=== PATIENT | male | born 1995 | race Native Hawaiian/Other Pacific Islander ===

== ENCOUNTER → 2016-12-19 | Day surgery (SDC) | payer OTHER ==
[2016-12-16 12:39] VITALS: Ht 177.8 cm; Wt 63.0 kg
[~2016-12-19] VITALS: Ht 177.8 cm; Wt 63.0 kg
[~2016-12-19] MED LIST: ATROPINE SULFATE 0.1 MG/ML 5ML SYR IV PRN; BUPIVACAINE/EPINEPHRINE 0.5% MPF 1:200,000 30 ML VIAL ONE; CEFAZOLIN 1000MG/55 ML D5W IV SCH; DEXAMETHASONE SOD INJ 4 MG/ML VIAL ONE; EpHEDrine SULFATE INJ 50 MG/ML AMP IV PRN; EpINEphrine INJ 1MG/ML AMP 1 MG/ML AMP ONE; FENTANYL CITRATE INJ 50 MCG/1 ML 2 ML VIAL ONE; LACTATED RINGER'S 1000ML 1,000 ML IV SCH; LIDOCAINE HCL 1% 20 ML VIAL ONE; LIDOCAINE HCL 2% 2 ML VIAL (20MG/ML) ONE; MIDAZOLAM HCL 1 MG/ML 2ML VIAL ONE; MoRPHine SULFATE 2 MG/ML CARP IV PRN; MoRPHine SULFATE 4 MG/ML 1 ML CARP\\VIAL IV PRN; ONDANSETRON INJ 2 MG/ML 2 ML VIAL IV PRN; ONDANSETRON INJ 2 MG/ML 2 ML VIAL ONE; OXYCODONE/ACETAMINOPHEN 5-325 TAB PO PRN; PROPOFOL IV EMULSION 10 MG/ML 20 ML VIAL IV ONE; ROPIVACAINE 0.5% 5 MG/ML 30 ML VIAL ONE
--- NOTE | 2016-12-19 07:05 | History & Physical Bridge - [place] ---
H&P Re-Evaluation Bridge Note: I have examined the patient, reviewed the History & Physical and in the interval since the performance of the History & Physical I have noted the following changes of clinical significance: No changes noted
--- NOTE | 2016-12-19 13:04 | [facility] Post Operative Brief Note ---
Immediate Operative Summary Operative Date Dec 19, 2016. Pre-Operative Diagnosis Right ACL tear Post-Operative Diagnosis Same + Chondromalacia Patella Procedure(s) Performed 1) Right Knee Arthroscopy Anterior Cruciate Ligament Reconstruction With Hamstring Autograft. 2) Chondroplasty of patella. 3) Exam Under Anesthesia Surgeon Dr Vega Event Technician Surgeon(s) Everett Matt PA-C (No fellow avail) Estimated Blood Loss 20 ml Findings As above. Fluids (cc crystalloids) 1200 Specimens None Drains n/a Anesthesia LMA & Adductor block Complication(s) None Disposition Recovery Room / PACU (Stable)
--- NOTE | 2016-12-19 13:22 | [facility] Operative Report ---
Operative Report Operative Date Dec 19, 2016. Pre-Operative Diagnosis Right ACL tear Post-Operative Diagnosis Same + Chondromalacia Patella Procedure(s) Performed 1) Right Knee Arthroscopy Anterior Cruciate Ligament Reconstruction With Hamstring Autograft. 2) Chondroplasty of patella. 3) Exam Under Anesthesia Surgeon Dr Vega Fancy Stitcher Surgeon(s) Everett Matt PA-C (No fellow avail) Estimated Blood Loss 20 ml Findings same Fluids (cc crystalloids) 1200 Specimens None Drains none Anesthesia general, block Disposition Recovery Room / PACU Implants see Dr. Vega's note Indications sustained injury to right knee, MRI obtained, surgery recommended, consents signed. Description of Procedure taken to the OR, prepped and draped, I was present the entire case, please see Dr. Vega's op note for further detail. I attest to the content of the Intraoperative Record and any orders documented therein. Any exceptions are noted below.
--- NOTE | 2016-12-19 13:24 | Discharge Instructions-SurgCtr ---
Discharge Instructions Visit Reason for Visit: Right Knee Acl Tear, Possible Meniscus Tear Discharge Discharge Diagnosis / Problem: Status post R ACL reconstruction with Hamstring autograft. Discharge Goals Goal(s): Decrease discomfort, Improve function, Increase independence Activity Recommendations Activity Limitations: per Instructions/Follow-up section Exercise/Sports Limitations: until after follow-up appointment May Resume Sexual Activity: when tolerated Shower/Bathe: may shower/bathe in 3 days Driving or Machine Use: No Weightbearing Status: Right non-weightbearing (for 24 hours, then as tolerated with brace locked in extension.) Anesthesia . Post Anesthesia Instructions: If you have had General Anesthesia or IV Sedation: * Do not drive today. * Resume driving when surgeon permits. * Do not make important decisions or sign legal documents today. * Call surgeon for: 1. Temperature elevations greater than 101 degrees F. 2. Uncontrollable pain. 3. Excessive bleeding. 4. Persistent nausea and vomiting. 5. Medication intolerance (nausea, vomiting or rash). * For nausea and vomiting use only clear liquids such as: tea, soda, bouillon until nausea subsides, then gradually increase diet as tolerated. * If you have any concerns or questions, call your surgeon's office. If physician is unavailable and it is an emergency, call 911 or go to the nearest emergency room. . Instructions / Follow-Up Instructions / Follow-Up PT in 2-[address] Vega in 10-15 days. Diet Recommendations Home Diet: resume previous diet Procedures Procedures Performed: 1) Right Knee Arthroscopy Anterior Cruciate Ligament Reconstruction With Hamstring Autograft. 2) Chondroplasty of patella. 3) Exam Under Anesthesia Pending Studies Studies pending at discharge: no Medical Emergencies . Who to Call and When: Medical Emergencies: If at any time you feel your situation is an emergency, please call 911 immediately. . Non-Emergent Contact Non-Emergency issues call your: Surgeon Call Non-Emergent contact if: temperature is above 101.5, your pain is not controlled, wound has increased drainage, wound has increased redness . . "Provider Documentation" section prepared by Chris Vega.
[2016-12-19] MEDS: FENTANYL CITRATE INJ 50 MCG/1 ML 2 ML VIAL IV PRN ×2 (13:43→13:53)
--- NOTE | 2016-12-19 14:37 | Anesthesia Progress Nt - [facility] ---
Anesthesia Post Op Note Date & Time Dec 19, 2016 at 14:36 Vital Signs Pain Intensity: 2 Vital Signs Past 12 Hours Date Time Temp Pulse Resp B/P Pulse Ox O2 Delivery O2 Flow Rate FiO2 12/19/16 14:25 59 14 99 12/19/16 14:25 60 14 12/19/16 14:24 59 13 12/19/16 14:24 60 13 100 12/19/16 14:23 37.0 58 14 127/86 99 Room Air 12/19/16 14:23 127/86 12/19/16 14:19 78 11 12/19/16 14:19 80 11 100 12/19/16 14:18 123/88 12/19/16 14:15 69 12 12/19/16 14:15 71 12 100 12/19/16 14:14 66 10 127/78 100 12/19/16 14:14 65 10 12/19/16 14:09 59 12 12/19/16 14:09 58 12 100 12/19/16 14:08 118/77 12/19/16 14:04 59 10 12/19/16 14:04 60 10 100 12/19/16 14:03 59 10 12/19/16 14:03 58 10 126/78 100 12/19/16 14:02 86 11 12/19/16 14:02 11 12/19/16 13:58 118/73 12/19/16 13:57 62 10 100 12/19/16 13:57 63 10 12/19/16 13:53 123/80 12/19/16 13:52 68 17 100 12/19/16 13:52 69 17 12/19/16 13:48 122/80 12/19/16 13:47 63 12 12/19/16 13:47 65 12 100 12/19/16 13:43 133/83 12/19/16 13:42 65 12/19/16 13:42 65 100 12/19/16 13:38 131/82 12/19/16 13:37 85 12 100 12/19/16 13:37 82 12 12/19/16 13:33 119/86 12/19/16 13:32 126/85 12/19/16 13:31 36.8 78 16 126/85 100 Diffusion Mask 6 12/19/16 10:32 48 19 100 12/19/16 10:32 49 12/19/16 10:31 47 24 100 12/19/16 10:31 46 12/19/16 10:28 104/68 12/19/16 10:26 54 22 100 12/19/16 10:26 54 12/19/16 10:23 97/67 12/19/16 10:21 56 12/19/16 10:21 54 19 100 12/19/16 10:18 108/75 12/19/16 10:16 48 24 100 12/19/16 10:16 47 12/19/16 10:13 98/75 12/19/16 10:11 47 12/19/16 10:11 46 17 100 12/19/16 10:08 101/67 12/19/16 10:06 48 12/19/16 10:06 47 20 100 12/19/16 10:03 102/68 12/19/16 10:01 48 18 100 12/19/16 10:01 49 12/19/16 09:58 86/63 12/19/16 09:56 49 12/19/16 09:56 53 41 100 12/19/16 09:55 84 17 100 12/19/16 09:55 50 12/19/16 09:53 101/67 12/19/16 09:50 55 12/19/16 09:50 55 28 100 12/19/16 09:48 106/62 12/19/16 09:45 54 12/19/16 09:45 54 19 100 12/19/16 09:43 97/66 12/19/16 09:40 55 10 100 12/19/16 09:40 56 12/19/16 09:38 110/65 12/19/16 09:35 55 12/19/16 09:35 55 9 100 12/19/16 09:33 103/64 12/19/16 09:30 57 12/19/16 09:30 57 10 100 12/19/16 09:28 108/65 12/19/16 09:25 57 12/19/16 09:25 54 8 100 12/19/16 09:24 55 12/19/16 09:24 57 10 100 12/19/16 09:23 106/64 12/19/16 09:19 58 46 99 12/19/16 09:19 58 12/19/16 09:18 98/61 12/19/16 09:14 59 0 110/59 99 12/19/16 09:14 58 12/19/16 09:13 110/59 12/19/16 09:09 58 0 100 12/19/16 09:09 57 12/19/16 09:08 105/63 12/19/16 09:06 67 12/19/16 09:06 66 0 95 12/19/16 09:03 104/60 12/19/16 09:01 82 12 121/72 100 12/19/16 09:01 76 12/19/16 08:56 54 12/19/16 08:56 55 0 99 12/19/16 08:51 52 12/19/16 08:51 52 0 99 12/19/16 08:46 52 12/19/16 08:46 52 0 99 12/19/16 08:41 51 0 98 12/19/16 08:41 51 12/19/16 08:36 54 0 99 12/19/16 08:36 54 12/19/16 08:31 56 12/19/16 08:31 58 0 98 12/19/16 08:26 66 12/19/16 08:26 59 0 98 12/19/16 08:21 67 12/19/16 08:21 67 0 99 12/19/16 08:16 54 12/19/16 08:16 55 0 99 12/19/16 08:11 57 12/19/16 08:11 57 0 98 12/19/16 08:06 57 0 98 12/19/16 08:06 60 12/19/16 08:01 63 0 98 12/19/16 08:01 63 12/19/16 07:56 84 0 99 12/19/16 07:56 79 12/19/16 07:51 55 0 98 12/19/16 07:51 55 12/19/16 07:46 70 0 100 12/19/16 07:46 67 12/19/16 07:41 59 0 100 12/19/16 07:41 61 12/19/16 07:36 59 12/19/16 07:36 60 0 100 12/19/16 07:31 62 12/19/16 07:31 63 0 100 12/19/16 07:06 36.9 71 16 117/73 100 Room Air Notes Mental Status: alert / awake / arousable, participated in evaluation Pt Amnestic to Procedure: Yes Nausea / Vomiting: adequately controlled Pain: adequately controlled Airway Patency, RR, SpO2: stable & adequate BP & HR: stable & adequate Hydration State: stable & adequate Anesthetic Complications: no major complications apparent
[2016-12-19 15:02] VITALS: TEMP 37.3
[2016-12-19 15:45] VITALS: BP 121/73; PULSE 72; O2SAT 100
--- NOTE | 2016-12-20 08:48 | [facility] Operative Report ---
Operative Report Operative Date Dec 20, 2016. Pre-Operative Diagnosis Right ACL tear Post-Operative Diagnosis Same + Chondromalacia Patella Procedure(s) Performed 1) Right Knee Arthroscopy Anterior Cruciate Ligament Reconstruction With Hamstring Autograft. 2) Chondroplasty of patella. 3) Exam Under Anesthesia Surgeon Dr Vega Senior Electronics Design Engineer Surgeon(s) Everett Matt PA-C (No fellow avail) Estimated Blood Loss 20 ml Findings Examination Under Anesthesia: Range of motion was 0-135 degrees. Ligamentous examination exhibited: Domi testing with 7 mm of anterior translation and soft endpoint, and a 2+ pivot-shift. Stable: posterior drawer, varus and valgus stress testing at zero and 30. ARTHROSCOPIC FINDINGS: 1) PATELLOFEMORAL JOINT: There was fraying at the most proximal aspect of the patella, the remainder of the articular cartilage of the patella and trochlea were intact 2) GUTTERS: No loose bodies. 3) MEDIAL COMPARTMENT: The femoral and tibial articular cartilage was normal. The medial meniscus was intact. 4) ACL/PCL: There was a clear tear of the ACL with a stump. There were a few fibers remaining attached to the femur that were incompetent and easily disrupted with a probe. The PCL was visualized and probed to be intact. 5) LATERAL COMPARTMENT: The lateral compartment was then entered in a figure-of- four position. The femoral/tibial cartilage was normal. The lateral meniscus was had minimal fraying at the apex, otherwise was normal. Fluids (cc crystalloids) 1200 Specimens None Drains n/a Anesthesia LMA + Abductor canal block Complication(s) None Disposition Recovery Room / PACU (Stable) Implants 1. Femoral Fixation with ACL Tightrope RT (Arthrex). 2. Tibial Fixation with ABS Tightrope with ABS button (Arthrex). Indications This is a 21-year-old male who tore their right ACL tear both clinically and with MRI findings. I recommended that their right knee anterior cruciate ligament reconstruction be performed to allow the patient to return to cutting/ pivoting activities. The patient understands the rehabilitation process as well as the risks of surgery, which include bleeding, infection, re-operation, damage to nerves and arteries, continued knee pain, or regression of arthritis, arthrofibrosis (knee stiffness), failure of the graft, failure of the hardware, and the potential that the patient may not return to their previous level of activity, and deep vein thrombosis. The patient understands all of these instructions and explanations, all of their questions have been satisfactorily addressed and the patient has elected to proceed. Informed consent was signed. Description of Procedure The patient was taken to the Operating Room and placed in the supine position after Adductor nerve block and general anesthetic was administered. The surgeon initials and a multidisciplinary time-out were used to identify the right leg as the correct operative limb. Prior to the incision, 1 gram of intravenous Ancef was given. The right leg was then prepped and draped in a standard sterile fashion. The anterolateral, anteromedial, and superolateral portals were injected with the 50:50 mixture of 1% Lidocaine plain and 0.5% Bupivacaine with epinephrine, for a total of 10cc, in the standard fashion. An anterolateral arthroscopic portal was established with 11-blade. Next, the arthroscope was introduced into the knee. The anteromedial portal was established under direct visualization using a spinal needle followed by an 11 blade in the standard fashion. The above findings were observed during the diagnostic arthroscopy. Graft Jennings: The oblique planed incision was injected with 6 cc of the above noted 50:50 mixture. With the knee bent 40-50 degrees a #10-blade was used to make sharp dissection approximately 5 cm. Blunt dissection was used to identify the Sartorious fascia. This was incised along its superior border and T distally. The Gracilis and Semitendinosus were identified and tagged. All adhesions were bluntly and sharply dissected off the Semitendinosus tendon. The Semitendinosus was sharply dissected off the bone distally and a Krackow stitch was placed with a #2 FiberWire. The tendon was delivered into the wound and the remaining adhesions were removed. A closed end graft harvester was used to then harvest the Semitendinosus tendon in the standard fashion. The graft was placed on the back table for preparation. All excess muscle was removed. The ends of the tendons were whipped stitched with 3-0 Vicryl and passed through the ABS and RT Tightropes, where the ends were then secured with a FiberLoop. 0 Vicryl was used to hazel the 20mm from either end of the tight ropes and the knot docked in the standard fashion. It was quadrupled over and found to fit an 9 mm sizer, for the femoral side and a 9 mm sizer on the tibial side. The graft length was 69 mm. The graft was tensioned on the back table and 15 PSI and covered with a moist sponge until later use. After completing the diagnostic arthroscopy, the frayed articular cartilage was removed with mechanical shaver as it was encountered. The right knee was then flexed to 90 degrees and a bump was placed underneath the posterior thigh. With the knee flexed in a 90-degree position, my attention was then focused on excising the remnants of the anterior cruciate ligament with a 5.0 mm shaver and Coolcut. A small notchplasty was performed to visualize the back wall. The Tibial drill guide was then brought into the knee and set on 60 degrees. A 9 mm Flipcutter was then introduced from the anteromedial tibia into the intra- articular position in the center of the ACL footprint even with the anterior horn of lateral meniscus and 8 mm anterior to the PCL. The tunnel was created to a depth of 35 mm. A Tigerstick was introduced through the tibial tunnel and retrieved through the anteromedial portal. The arthroscope was switch to the anteromedial portal and the Flipcutter aiming guide was placed at the 10 Oclock position with 7 mm from the over the top position, with 110 degrees. The lateral aspect of the femur was marked and a small 1 cm incision was made to place the aiming guide down to bone. Then the 9 mm Flipcutter was introduced into the knee through the lateral femoral condyle for proper femoral tunnel placement. The Flipcutter was flipped and the tunnel was reamed for a total tunnel length of 30 mm. There was 1 mm thick back wall. A Fiberstick suture was then used and shuttled in through the femoral tunnel and then out the anteromedial portal, along with the Tigerstick to pass the graft, insuring that there was no soft tissue bridge. The graft was then introduced intra-articularly through the anteromedial portal. The graft was then seated in an anatomic position along the femur. Fixation was accomplished on the femoral side with an ACL Tightrope RT. The graft was then introduced into the tibial tunnel and an ABS button was placed. Next, the graft was taken into full extension. There was some impingement superiorly which was removed with the bone cutter and the knee was again taken into full extension, now without any impingement. The graft entered the knee approximately 1 mm at 10 degrees of flexion. The arthroscopic instruments were then removed. The graft was then cycled and fixed to the knee in 0 degrees flexion with ABS Tightrope and button on the tibial side in the standard fashion. Domi and pivot shift were then tested and were negative. The knee had full range of motion. The wounds were then copiously irrigated. The portal sites were closed with 3- 0 Prolene. The Sartorius fascia was closed with 0 Vicryl in a running fashion. The deep adipose tissue had a single 2-0 Vicryl suture placed after copious irrigation. The subcutaneous tissue was closed with 3-0 Vicryl. The skin was closed with a running subcuticular using a 3-0 Prolene in a standard running fashion. The wound was dressed with Steri-Strips, Xeroform gauze, sterile gauze , ABDs, sterile Webril, and a foot to thigh Shawn bandage. An Iceman device and T-ROM hinged knee brace were applied. The patient was then transferred to the Recovery Room in stable condition. Post-op Instructions: The patient will be weight bearing as tolerated with his brace locked in extension for the next 2 weeks. The patient may remove the operative dressing on Post-Op Day #2 and apply Band-Aids to the portal wounds and cover their anterior incision with gauze as needed. The patient may shower in 72 hours and is to wear the SUKH for 2 weeks on their operative limb. The patient is to use the pain medicine as needed and take the ASA for 3 weeks. The patient is to start PT post-operative day 2. The patient was also given a handout for home quad strengthening and seated self-assisted ROM exercises, which they may begin tomorrow. The patient is to follow up with me in 10-15 days. I attest to the content of the Intraoperative Record and any orders documented therein. Any exceptions are noted below.
== END | disposition home or self-care (01) ==
LOC: X.SURG 06:50
PROVIDERS: ATTEND Orthopaedic Surgery Sports Medicine
DX: S83.511A Sprain of anterior cruciate ligament of right knee, initial encounter (principal); Y93.66 Activity, soccer; Y92.322 Soccer field as the place of occurrence of the external cause; F17.210 Nicotine dependence, cigarettes, uncomplicated

== ENCOUNTER → 2016-12-30 | Outpatient (CLI) | payer OTHER | END | disposition home or self-care (01) | LOC: C.RDSM 08:00 | PROVIDERS: ATTEND Orthopaedic Surgery Sports Medicine | DX: Z09 Encounter for follow-up examination after completed treatment for conditions other than malignant neoplasm (principal) ==